=== PATIENT | male | born 1950 | race Caucasian/White ===

== ENCOUNTER 2021-01-21 10:58 | Outpatient (RCR) | payer MEDICARE, OTHER, SELFPAY ==
[2021-01-21] MEDS: COVID-19 VACC, MRNA(PFIZER)/PF 30 MCG/0.3 ML SYRINGE IM (07:14)
[2021-02-11] MEDS: COVID-19 VACC, MRNA(PFIZER)/PF 30 MCG/0.3 ML SYRINGE IM (07:03)
== END 2021-01-21 23:59 ==
LOC: IMMUN 10:58
PROVIDERS: PCP Family Medicine; Visit Provider Family Medicine
DX: Z23 Encounter for immunization (principal)
CPT/HCPCS: 0001A; 0002A; 91300

== ENCOUNTER 2021-12-19 11:33 | Day surgery (SDC) | payer MEDICARE, SELFPAY ==
--- NOTE | 2021-12-19 11:49 | EKG12_ITS ---
Test Reason : PREOP Blood Pressure : / mmHG Vent. Rate : 100 BPM Atrial Rate : 100 BPM P-R Int : 158 ms QRS Dur : 094 ms QT Int : 324 ms P-R-T Axes : 052 053 023 degrees QTc Int : 417 ms Normal sinus rhythm Normal ECG Confirmed by AZALEA FLOWERS, ADAM ([id number]), purchasing expeditor IMAN BELLAMY ([id number]) on 12/24/2021 9:36:56 AM Referred By: Chris Grove Confirmed By:ADAM TRISTAN MD
[2021-12-19 12:03] VITALS: BP 145/85; PULSE 107; RESP 16; TEMP 36.4; O2SAT 99; BMI 32.0
[2021-12-19] MEDS: Lactated Ringers 1,000 ML 15 ML IV (12:06)
[2021-12-19 12:13] LABS: Absolute Lymphocyte Count 1.46 X10^3/uL (0.83-4.51); Absolute Neutrophil Count 10.6 X10^3/uL (2.0-7.7); Basophil# 0.06 X10^3/uL; Basophil% 0.5 % (0-1); Eosinophil# 0.06 X10^3/uL; Eosinophils% 0.5 % (0-5); Hematocrit 48.1 % (40-54); Hemoglobin 16.7 g/dL (13.0-16.5); Lymphocyte # 1.46 X10^3/ul (0.83-4.51); Lymphocyte % 11.3 % (19-41); Mean Corp Hgb Conc 34.7 g/dL (32-36); Mean Corpuscular Hgb 31.9 pg (27.0-32.0); Mean Corpuscular Volume 91.8 fL (80-94); Mean Platelet Vol. 9.1 fl (6.2-12.0); Monocyte# 0.69 X10^3/uL; Monocyte% 5.3 % (0-10); NRBC Flagged by Analyzer 0 % (0-5); Neutrophil # 10.64 X10^3/uL (2.7-7.7); Platelet Count 222 K/mm3 (150-450); RBC Distribution Width CV 11.9 % (11.6-14.6); RBC Distribution Width SD 40.2 fl (35.1-43.9); Red Blood Count 5.24 M/mm3 (4.6-6.2)
[2021-12-19 12:20] LABS: Anion Gap 6 (5-15); BUN 20 mg/dL (7-18); BUN/Creat Ratio 17.9 RATIO (10-20); Calcium,Total 10.6 mg/dL (8.5-10.1); Chloride 109 mmol/L (98-107); Creatinine, Serum 1.12 mg/dL (0.70-1.30); EST Glomerular Filtration Rate 68 mL/min (>60); Est Glom Filt Rate - Afr Amer 83 mL/min (>60); Estimated Creatinine Clearance 64.47 ml/min; Glucose 96 mg/dL (74-106); Potassium 4.2 mmol/L (3.5-5.1); Sodium Level 137 mmol/L (136-145)
[2021-12-19] MEDS: Bupivacaine Mpf 0.5% 30 ML VIAL (13:01)
--- NOTE | 2021-12-19 13:34 | PCM.HP.BLA ---
History and Physical Date of Admission: 12/19/21 HISTORY AND PHYSICAL ? Herberth Keys 1950 ? ? REFERRING PHYSICIAN: Liv Guadarrama MD ? CHIEF COMPLAINT: Consult (hernia surgery) ? HPI: Herberth is a 71 year old male with a complaint of a bulge and discomfort in his left inguinal region. The patient notes discomfort in this area with lifting, straining and moving. The symptoms have maintained, over the past 1 month. ? The patient notes no symptoms of bowel obstruction and denies nausea or vomiting. ? ? PAST MEDICAL HISTORY PAST MEDICAL HISTORY Diagnosis Date ? DVT (deep venous thrombosis) (HCC) ? ? Essential hypertension, benign ? ? Family history of heart attack ? ? Was involved in study with [facility] ? Hyperlipidemia 08/27/2011 ? Inguinal hernia without mention of obstruction or gangrene, unilateral or unspecified, (not specified as recurrent) 10/25/2006 ? Rosacea 01/14/2008 ? ? PAST SURGICAL HISTORY PAST SURGICAL HISTORY Procedure Laterality Date ? RPR 1ST INGUN HRNA AGE 5 YRS/> REDUCIBLE ? 11/16/2006 ? Hernia repair, inguinal ? ? ? CURRENT MEDICATIONS Current Outpatient Medications Medication Sig ? lisinopril (ZESTRIL, PRINIVIL) 20 mg tablet Take 1 tablet by mouth once daily. ? Pjgbdjjmvbt-Uekhzvwlk-Eig C-Mn (GLUCOSAMINE CHONDROITIN MAXSTR) 500-400 mg cap Take 1 capsule by mouth three times daily. ? ASPIRIN 81 MG TAB Take one(1) tablet daily. ? loratadine (CLARITIN) 10 mg tablet Take 10 mg by mouth once daily. (Patient not taking: Reported on 11/17/2021 ) ? No current facility-administered medications for this visit. ? ? ALLERGIES: Pistachio Nut ? PERSONAL HISTORY: SOCIAL HISTORY Social History ? Tobacco Use ? Smoking status: Former Smoker ? ? Packs/day: 2.00 ? ? Years: 10.00 ? ? Pack years: 20.00 ? ? Quit date: 08/24/1981 ? ? Years since quittin.3 ? Smokeless tobacco: Never Used Vaping Use ? Vaping Use: Never used Substance Use Topics ? Alcohol use: Not Currently ? ? Alcohol/week: 35.0 standard drinks ? ? Types: 14 Cans of Beer (12oz) per week ? Drug use: No ? FAMILY HISTORY: FAMILY HISTORY FAMILY HISTORY Problem Relation Age of Onset ? Coronary Artery Disease Mother ? ? of MIs. 1st NE age 60. ? Coronary Artery Disease Father ? ? at age 56 [place] ? Diabetes Brother ? ? Coronary Artery Disease Brother ? ? age 59. 1st [place] age 48 ? COPD Brother ? ? No Known Problems Son ? ? No Known Problems Son ? ? No Known Problems Daughter ? ? ? REVIEW OF SYMPTOMS: The review of systems data was entered by the nurse and reviewed by me ? Nursing Notes: Lydia Alfonso LPN 12/09/2021 12:45 PM Signed REVIEW OF SYSTEMS: ?General:???The patient denies fatigue, denies weight loss, denies weight gain, denies feeling hot, and denies feelings of cold. ?Eyes: ?The patient denies glaucoma, denies eye injury/surgery, wears glasses or contacts. ?Ear/Nose/Throat: ?The patient denies allergies, denies hayfever, denies ear infections, and denies bloody noses. ?Cardiovascular: ?The patient denies chest pain, denies heart disease, denies high blood pressure,denies cardiac stent, denies prior heart attack, denies irregular heart beat, denies high cholesterol, ?denies poor circulation, denies heart failure, other cardiac issues, denies claudication, denies cold feet, denies peripheral arterial stent. ?Respiratory: ?The patient denies tuberculosis, denies pneumonia, denies frequent cough, denies pulmonary embolism, denies shortness of breath, and denies coughing up blood. ?Gastrointestinal: ?The patient denies difficulty swallowing, denies acid reflux, denies ulcers, denies vomiting, denies jaundice/hepatitis, denies gallbladder problems, denies black or tarry stools, denies hemorrhoids, denies bleeding from rectum, denies diverticulitis, denies constipation, denies diarrhea, denies loss of stool control, and denies hernias. ?Kidney/Bladder: ?The patient denies kidney stones, denies urine infections, and denies bloody urine. ?Skin: ?The patient denies a history of skin cancer, denies bleeding/changing moles, and denies a history of skin rash. ?Neurologic: ?The patient denies a history of epilepsy/convulsions, denies headaches, denies head/spinal injuries, and denies stroke/TIA. ?Psychiatric: ?The patient denies psychiatric medications, denies depression, and denies voices, denies substance abuse. ?Endocrine: ?The patient denies thyroid disorders, denies diabetes, and denies hormonal problems. ?Hematologic: ?The patient denies a history of bruising, denies bleeding, and denies anemia, denies blood clots. ?Infections: ?The patient denies a history of measles and mumps, denies rheumatic fever, and denies sexually transmitted diseases. ?Musculoskeletal: ?The patient denies back pain/injury, denies back problems, denies sciatica, denies knee/foot trouble, denies arthritis, or notes gout. When was patient's last Mammogram screening? n/a ?Last Colonoscopy: none Lydia Alfonso LPN ? ? PHYSICAL EXAMINATION: ? General: The patient is 71 year old male, well nourished, well hydrated in no acute distress. The patient is oriented to time, place, and person. ? VITALS: Blood pressure 130/82, pulse 61, temperature 36.9 ?C (98.4 ?F), height 182.9 cm (6'), weight 110.4 kg (243 lb 6.4 oz), SpO2 100 %. Body mass index is 33.01 kg/m?. ? HEENT: Normal cephalic, ataumatic, pupils are equally round, sclera are anicteric, mucous membranes are moist, oropharynx is clear. Neck has no masses, asymmetry or lymphadenopathy. Thyroid is unremarkable. ? Respiratory: Clear to auscultation and percussion. Normal respiratory excursion and pattern. ? Cardiac: Examination is regular rate and rhythm. ? Abdominal exam: Soft, nontender, with no palpable masses. No hepatosplenomegaly. A small, reducible left inguinal hernia, no right inguinal or umbilical hernias are noted ? Rectal exam: exam deferred ? Extremities: no clubbing, cyanosis or edema. No adenopathy. ? Other: ? ? LABORATORY VALUES: As Noted ? RADIOLOGIC STUDIES: As Noted ? Assessment IMPRESSION: left inguinal hernia ? PLAN: My plan is to perform a laparoscopic left inguinal hernia repair with mesh. The planned surgical procedure was discussed extensively with the patient. The risks, benefits, anticipated outcomes and possible complications were mentioned. Herberth jhaands that all hernia repair surgery has a chance of recurrence and/or chronic post operative pain. My staff has also explained the procedure in understandable terms and the patient was given the option to take printed material concerning the planned procedure. The patient had the opportunity to ask questions concerning the planned procedure. The patient freely consents to the planned procedure. ? Diagnoses: (K40.90) Inguinal hernia of left side without obstruction or gangrene (primary encounter diagnosis) ? Anticipated CPT Code: laparoscopic left inguinal hernia repair with mesh - 11704-798 ? Anticipated Anesthetic: General ? Patient weight: Blood pressure 130/82, pulse 61, temperature 36.9 ?C (98.4 ?F), height 182.9 cm (6'), weight 110.4 kg (243 lb 6.4 oz), SpO2 100 %. BMI: Body mass index is 33.01 kg/m?. ? Planned antibiotic: Ancef 2gm IVPB electronics engineering professor to OR ? SCDs needed - Yes Return to Clinic: The patient is instructed to follow-up with me 1 week post operatively. ? COVID (Procedure Consent) Procedure Criteria ? Procedure Criteria: Yes Elective The surgeon/proceduralist and patient have discussed in detail the risk of exposure to and/or potential harm posed by the COVID-19 virus with having a surgery/procedure at this time versus the risk of? delaying the surgery/procedure. It is not possible to know either the risk of delaying the surgery or procedure or chance of getting an infection with perfect accuracy, but a joint decision was made between the patient and the surgeon/proceduralist ?to proceed at this time with the scheduled surgery/procedure as indicated on the consent form. ? ? Chris Grove III, MD . I have re-examined the patient. There are no clinical changes since date of exam.
--- NOTE | 2021-12-19 14:05 | LIP_PTH ---
PATIENT: [place]ET RON [place] [facility] [id number] AGE/SX: 71/M ROOM: RE12/19/[address]: Dr. Chris Grove MD : 1950 BED: DIS: 12/19/2021 SPEC #: [id number] RECD: 12/22/21 07:21 STATUS: LEANNA ERAZODanette #: [id number] ANDREA: 12/19/21 14:[address]: Chris Grove DEPT: SURGICAL PATHOLOGY RECD BY: Nicole Ly ENTERED: 12/22/21 08:02 SP TYPE: LIPOMA OTHR DR: Dr. Tigre Adair MD Tissues: Soft tissues, NOS Procedures: Surgery Specimen Level III HEADER OPERATION: Lap robotic inguinal hernia PRE-OP DIAGNOSIS: Inguinal hernia of left side without obstruction or gangrene TISSUE SUBMITTED: Cord lipoma MICROSCOPIC DIAGNOSIS Cord lipoma, excision: Mature adipose tissue consistent with cord lipoma. AM:prateek 12/23/2021 MICROSCOPIC DESCRIPTION Slides are reviewed. GROSS DESCRIPTION Received in fixative is one container labeled with the patient's name and designated cord lipoma. The specimen consists of an irregular piece of yellow adipose tissue measuring 7 x 3 x 1.5 cm. Sections reveal yellow adipose cut surfaces without area of hemorrhage, necrosis or cystic degeneration. Substance Abuse Technician sections are submitted in one cassette. / SJ:prateek 12/22/2021 TC:1 CPT: 47685
[2021-12-19] MEDS: Cefazolin 2 GM in 0.9% Normal Saline 100 ML IV (14:15)
--- NOTE | 2021-12-19 15:33 | OP.PCM_ITS ---
Problems Associated Problem List Diagnoses (1) Left inguinal hernia: Report of Operation Date of Procedure: 12/19/21 Pre-Operative Diagnosis: Left inguinal hernia Post-Operative Diagnosis: Same Surgery/Procedure Performed:: Robotic assisted laparoscopic left inguinal hernia repair with mesh Surgeon: Chris Grove powerhouse operator: Benito Mcallister Type of Anesthesia: General Anesthesiologist: Dustin Abrams Estimated Blood Loss (mL): < 25cc Description of Procedure: Patient brought into the operating room. Placed in the supine position. Under excellent general anesthetic Tran catheter was placed the abdomen was sterilely prepped and draped in usual fashion. Local was injected above the umbilicus incision was made dissection was carried down to the fascia fascia was grasped with [place] varies needle was placed inside the abdomen the abdomen was insufflated to 15 torr a #8 trocar was placed under direct visualization it was flank by 2 #8 trochars without injury to underlying structures. Patient was placed in the headdown position. Robot was brought in and docked appropriately I then went to the console. I scored the peritoneum on the left dissected down to the pubic tubercle and Davin's ligament dissected laterally brought a very large indirect inguinal hernia back down dissected it free from the cord and vessel structures and dissected further laterally. Patient had a very large cord lipoma which I brought back in its blood supply was very tenuous and I removed it in its entirety. I placed a large mesh into the wound. It laid completely flat to cover the defect perfectly. I then reperitonealized the area using a 3 OV lock suture needle was removed cord lipoma was removed trochars were removed under direct visualization good with stasis was noted. Testicle was brought back down into the scrotum air was noted in the scrotum. Incisions were closed with 4-0 Monocryl. Steri-Strips were applied. Sterile dressings were applied. The patient tolerated the procedure well. Admit VTE Documentation VTE Present on Admission: No VTE Mechan Device Prophylaxis: SCD's VTE Pharm Prophylaxis ordered?: No Reason prophylaxis not ordered:: Treatment Not Indicated
[2021-12-19 15:44] VITALS: BP 132/86; BP 145/85; PULSE 71; RESP 16; TEMP 36.3; O2SAT 94
--- NOTE | 2021-12-19 15:50 | DCINST_ITS ---
Discharge Instructions Procedure Hernia Diet Discharge Diet: Light diet - advance as tolerated Activity Discharge Activity: Return to Normal Activity, May Drive (when you are no longer taking narcotic pain medications.) and May Shower (with the bandage in place 1-2 days after surgery.) Lifting Restrictions: 20 pounds for 8 weeks. Additional Activity Instructions:: Climbing stairs is fine, walking is e ncouraged. Sitting in bed may be uncomfortable. Sitting up using your lateral muscles (sitting up sideways) is usually more comfortable. Do not drive, work heavy equipment of sign legal documents for 24 hours. If your hernia repair was an ingunial repair, you may have scrotal swelling, an ice pack and/or athletic support can provide more comfort. Pain medications may cause nausea, you should typically eat light foods as you take your pain medications. Pain medications may also cause constipation. If you have difficulty with this, discuss with your doctor. Dressing / Incision Call your doctor if your incision/area has: Continuous Slow Oozing, Sudden Increased Bleeding, Increased Pain/ Swelling, Increased Redness and Foul Smelling Discharge Call your doctor if you observe: Fever of 101 or Higher Suture Line Care: Avoid Pulling/Pushing and Avoid Pinching/Bending Additional Dressing/Incision Instructions:: Leave the operative bandage on for 2-3 days. When you remove the bandage, leave the steri-strips on place until your follow up appointment or they fall off. Follow Up Care Please Follow Up With: Mya Garcia PA-C When: Call office to schedule an appointment to be seen in 7 days. Test Results: Test results from this visit will be discussed in further detail at your follow-up appointment, if applicable. Discharge Plan Admission Attending Provider: Chris Grove Primary Care Provider: Tigre Adair Discharge Orders/Prescriptions Prescriptions: New oxycodone-acetaminophen [Percocet] 5-325 mg tablet 1 tab PO Q4H PRN (Reason: pain) 5 Days Qty: 20 RF: 0 No Action lisinopril 20 mg Tablet 20 mg PO DAILY RF: 0 aspirin [Aspir-81] 81 mg Tablet,Delayed Release (Dr/Ec) 81 mg PO DAILY RF: 0 [id number] 250 mg-200 mg- 1,500 unit Tablet 1 tab PO DAILY RF: 0 Referrals / Follow Up: Tigre Adair MD [Primary Care Provider] - Mya Garcia PAFaizaC [PHYSICIAN PLODDER OPERATOR] - Disposition Discharge Orders: Discharge Patient (Routine); Ordered 12/19/21 Ordered By: Dr. Chris Grove
[2021-12-19 16:00] VITALS: BP 132/71; BP 145/85; PULSE 81; RESP 16; O2SAT 94
[2021-12-19 16:15] VITALS: BP 134/81; BP 145/85; PULSE 84; RESP 16; O2SAT 95
[2021-12-19 16:20] VITALS: BP 128/84; BP 145/85; PULSE 85; RESP 16; TEMP 36.2; O2SAT 93
[2021-12-19 17:08] VITALS: BP 145/85
== END 2021-12-19 23:59 | disposition home or self-care (01) ==
LOC: SDC 11:35 → AC 11:36
PROVIDERS: PCP Family Medicine; Referring Provider Surgery; Visit Provider Surgery
PROC: 0YQ64ZZ Repair Left Inguinal Region, Percutaneous Endoscopic Approach (ICD-10-PCS; CPT 840; principal; 2021-12-19 13:45)
DX: K40.90 Unilateral inguinal hernia, without obstruction or gangrene, not specified as recurrent (principal); D17.6 Benign lipomatous neoplasm of spermatic cord; I10 Essential (primary) hypertension; E78.5 Hyperlipidemia, unspecified; Z86.718 Personal history of other venous thrombosis and embolism; Z79.82 Long term (current) use of aspirin; Z79.899 Other long term (current) drug therapy; Z87.891 Personal history of nicotine dependence
CPT/HCPCS: 00840; 49650; S2900; 80048; 85025; 88304; 93005; J7120; J2405